=== PATIENT | male | born 1955 | race African-American/Black ===

== ENCOUNTER 2023-06-14 11:47 | Emergency (ER) | payer MEDICARE, SELFPAY ==
--- NOTE | ~2023-06-14 | US_ITS ---
EXAMINATION: US venous doppler [facility] DATE: 06/14/2023 13:18 INDICATION: Left lower limb pain and swelling TECHNIQUE: Colon scale images without and with compression and Doppler images of the left lower extrem ity veins were obtained. COMPARISON: None FINDINGS: The left common femoral vein, profunda femoral vein, femoral vein, popliteal vein, peroneal trunk, posterior tibial veins, and greater saphenous vein are patent. IMPRESSION: 1. Patent left lower extremity veins. No evidence of deep venous thrombosis. Reviewed, dictated and finalized at location [facility]
[2023-06-14 11:50] VITALS: BP 150/94; PULSE 66; RESP 18; TEMP 36.1; O2SAT 100
--- NOTE | 2023-06-14 12:31 | ED.EXTPRO ---
HPI - Extremity Problem General Chief complaint: Extremity Problem,Nontraumatic Stated complaint: left leg swelling-history of DVT Time Seen by Provider: 06/14/23 12:01 History of Present Illness HPI Narrative: Patient is a 68-year-old male with a history of DVT on Xarelto presenting with leg pain. States that he struck his left leg was something several days ago and it became swollen and painful afterwards. He was seen at another hospital and a CT of his chest was obtained which showed no clots. States that they did not do any imaging of the left leg. He continued to have some pain so he told his PCP who advised that he go to the ER. He went to several other ERs but the wait was too long and/or they did not have staff for ultrasound so when he spoke with his PCP today she advised that he again come in. States that he still has some pain in his left leg but it is no longer swollen. He is compliant with his Xarelto. No chest pain or shortness of breath. No numbness or weakness. No rashes. No further complaints. Related Data Allergies Allergy/AdvReac Type Severity Reaction Status Date / Time aspirin AdvReac Hives Verified 06/14/23 11:47 Review of Systems Review of Systems: All systems reviewed & are unremarkable except as noted in HPI and below Exam Narrative: GENERAL: Well-appearing and in no acute distress. pleasant and cooperative HEAD: Normocephalic, atraumatic. EYES: PERRLA and EOMI. ENT: grossly unremarkable NECK: Supple. CHEST: No respiratory distress. HEART: Regular rate and rhythm. Normal peripheral pulses. EXTREMITIES: Normal range of motion. No edema. left calf mildly tender with palpation, no swelling or redness, distal pulses 2+ SKIN: Warm, dry, no rash. NEURO: Alert and oriented x3. PSYCH: Normal mood and affect. Course Vital Signs Vital signs: Vital Signs Temperature 97.0 F L 06/14/23 11:50 Pulse Rate 66 06/14/23 11:50 Respiratory Rate 18 06/14/23 11:50 Blood Pressure 150/94 H 06/14/23 11:50 Pulse Oximetry 100 06/14/23 11:50 Oxygen Delivery Room Air 06/14/23 11:50 Temperature 97.0 F L 06/14/23 11:50 Pulse Rate 66 06/14/23 11:50 Respiratory Rate 18 06/14/23 11:50 Blood Pressure 150/94 H 06/14/23 11:50 Pulse Oximetry 100 06/14/23 11:50 Oxygen Delivery Room Air 06/14/23 11:50 MDM - Extremity (Nontraumatic) MDM Narrative Medical decision making narrative: 68-year-old male presenting with left leg pain. Vitals are stable. Exam remarkable for the above. Doppler of the left lower extremity reveals no DVT. Re-evaluation, patient is resting comfortably. Discussed the reassuring workup. Advised to follow-up with his PCP at his scheduled appointment. Continue his Xarelto. Appropriate return precautions given. Discharged in stable condition. Differential Diagnosis Differential diagnosis: Likely superficial thrombophlebitis, deep vein thrombosis of lower extremity and other ( Ecchymosis, calf pain) Medical Records Attestation: I reviewed the patient's medical records. Imaging Data Radiologist's impression: ITS Impressions Venous Doppler Study 06/14/23 13:22 IMPRESSION: 1. Patent left lower extremity veins. No evidence of deep venous thrombosis. Critical Care Time Critical Care Time Critical Care Time: No Discharge Plan Discharge Clinical Impression: Leg pain, left Patient Disposition: Home, Self-Care Condition: Stable Instructions: Antibiotic Form, Leg Sprain (ED) Additional Instructions: The ultrasound today shows no blood clots. Please continue taking your Xarelto. Please follow-up with your PCP as scheduled. If your symptoms worsen or other concerning symptoms arise, please return to the ER. Follow-up/Referrals: Alex,Sofi Beasley NP [Primary Care Provider] -
[2023-06-14] MEDS: NAPROXEN 500 MG TABLET PO (12:34)
== END 2023-06-14 14:03 | disposition home or self-care (01) ==
PROVIDERS: Emergency Provider Emergency Medicine; PCP Nurse Practitioner Family
DX: M79.605 Pain in left leg (principal)
CPT/HCPCS: 93971; 99284; A9270